=== PATIENT | male | born 1990 | race Caucasian/White ===

== ENCOUNTER 2018-05-26 15:42 | Emergency (ER) | payer OTHER ==
[~2018-05-26] VITALS: Ht 177.8 cm; Wt 77.1 kg
[~2018-05-26 15:42] MED LIST: Motrin,Rufen800 MG PO; Orphenadrine C100 MG PO; ULTRAM50 MG PO
== END 2018-05-26 17:26 | disposition home or self-care (01) ==
LOC: ED 15:42
DX: S80.01XA Contusion of right knee, initial encounter (principal); S80.212A Abrasion, left knee, initial encounter; S50.812A Abrasion of left forearm, initial encounter; S50.811A Abrasion of right forearm, initial encounter; S80.812A Abrasion, left lower leg, initial encounter; S80.811A Abrasion, right lower leg, initial encounter; V29.9XXA Motorcycle rider (driver) (passenger) injured in unspecified traffic accident, initial encounter; Y93.55 Activity, bike riding; Y92.481 Parking lot as the place of occurrence of the external cause; Y99.8 Other external cause status